=== PATIENT | male | born 1925 | race Caucasian/White ===

== ENCOUNTER → 2017-08-02 | Outpatient (CLI) | payer MEDICARE, BC ==
--- NOTE | 2017-08-02 13:51 | PCVCIMAG ---
APPROVED REPORT Study performed: 08/02/2017 12:56:30 EXAM: Comprehensive 2D, Doppler, and color-flow Echocardiogram Patient Location: Echo lab Status: routine BSA: 1.92 HR: 60 bpmBP: 162/84 mmHg Rhythm: NSR Other Information Study Quality: Adequate Risk Factors: Cardiac Risk Factors: HTN Indications Diabetes Pacemaker PVCs 2D Dimensions LVEF(%): 43.22 (>50%) IVSd: 11.52 (7-11mm) LVDd: 45.21 mm PWd: 11.91 (7-11mm) LVDs: 35.62 (25-40mm) Left Atrium: 39.65 (27-40mm) Aortic Root: 35.10 mm LV Single Plane 4CH: 43.47 % LV Single Plane 2CH: 50.93 %Choudhury's LVEF: 47.20 % Biplane EF: 45.2 % Volumes Left Atrial Volume (Systole) Single Plane 4CH: 66.20 mLSingle Plane 2CH: 80.44 mL LA ESV Index: 38.00 mL/m2 Aortic Valve AoV Peak [place].: 1.22 m/s AO Peak Gr.: 5.93 mmHgLVOT Max P.66 mmHg LVOT Max V: 0.79 m/s Mitral Valve E/A Ratio: 0.5 MV Decel. Time: 259.43 ms MV E Max [place].: 0.61 m/s MV A [place].: 1.24 m/s IVRT: 190.31 ms Pulmonary Vein P Vein S: 0.30 m/sP Vein A: 0.27 m/s P Vein D: 0.39 m/sP Vein A Dur.: 128.0 msec P Vein S/D Ratio: 0.77 Tricuspid Valve TR Peak [place].: 3.64 m/s TR Peak Gr.: 52.92 mmHg Left Ventricle The left ventricle is normal size. There is normal LV segmental wall motion. Mild concentric left ventricular hypertrophy. Left ventricular systolic function is at the lower limits of normal. Discordant septal motion, probably from RV pacing LVEF 45-50%. Grade I - abnormal relaxation pattern. Right Ventricle The right ventricle is normal size. The right ventricular systolic function is normal. Pacemaker lead is present in the right ventricle. Atria Left atrium is mildly dilated. Right atrium size is normal. Pacemaker lead is present in the right atrium. Aortic Valve The aortic valve is mildly sclerotic No aortic regurgitation is present. There is no aortic valvular stenosis. Mitral Valve The mitral valve is normal in structure. Mild mitral regurgitation No evidence of mitral valve stenosis. Tricuspid Valve The tricuspid valve is normal in structure. Moderate tricuspid regurgitation. Pulmonic Valve The pulmonary valve is normal in structure. There is mild pulmonic valvular regurgitation. Great Vessels The aortic root is normal in size. IVC is normal in size and collapses with >50% inspiration Pericardium There is no pericardial effusion. <Conclusion> Left ventricular systolic function is at the lower limits of normal. Discordant septal motion, probably from RV pacing LVEF 45-50%. Grade I diastolic dysfunction Left atrium is mildly dilated. The aortic valve is mildly sclerotic. No aortic valvular stenosis or insufficiency. The mitral valve is normal in structure. Mild mitral regurgitation Pulmonary artery pressure of 55-60mmHg There is no pericardial effusion.
== END | disposition home or self-care (01) ==
LOC: PCVCCLINIC 13:34
PROVIDERS: ATTEND Internal Medicine
DX: I49.3 Ventricular premature depolarization (principal); I45.9 Conduction disorder, unspecified; I10 Essential (primary) hypertension; E78.5 Hyperlipidemia, unspecified; E11.9 Type 2 diabetes mellitus without complications; Z95.0 Presence of cardiac pacemaker; Z79.82 Long term (current) use of aspirin; Z79.899 Other long term (current) drug therapy
CPT/HCPCS: 80061; 93005; 93306; G0463